=== PATIENT | female | born 1940 | race Caucasian/White ===

== ENCOUNTER 2017-12-25 11:35 | Emergency (ER) | payer OTHER ==
[2017-12-25 12:04] VITALS: BP 149/71
--- NOTE | 2017-12-25 12:33 | UC ---
Complaint Female HPI - HPI Summary HPI Summary: woke up this morning with increased abdominal pressure and hematuria, calvert with urination - History Of Current Complaint Chief Complaint: UCGU Stated Complaint: URINARY Time Seen by Provider: 12/25/17 12:18 Hx Obtained From: Patient Onset/Duration: Sudden Onset, Lasting Hours Timing: Constant Severity Initially: Mild Severity Currently: Mild Pain Intensity: 0 Aggravating Factor(s): Urination - Allergies/Home Medications Allergies/Adverse Reactions: Allergies Allergy/AdvReac Type Severity Reaction Status Date / Time sulfamethoxazole Allergy Vomiting Verified 12/25/17 11:59 [From Bactrim] trimethoprim [From Bactrim] Allergy Vomiting Verified 12/25/17 11:59 Home Medications: Home Medications Alendronate Sodium [Fosamax-] 70 mg PO WEEKLY 12/25/17 [History Confirmed ] Amlodipine Besylate [Norvasc 5 mg tab] 5 mg PO DAILY 12/25/17 [History Confirmed 12/25/17] Aspirin [Aspir-Low] 81 mg PO DAILY 12/25/17 [History Confirmed 12/25/17] Cholecalciferol (Vitamin D3) [Vitamin D3] 2,000 unit PO DAILY 12/25/17 [History Confirmed 12/25/17] Hydrochlorothiazide TAB* [Hydrodiuril TAB*] 12.5 mg PO DAILY 12/25/17 [History Confirmed 12/25/17] Losartan Potassium 100 mg PO DAILY 12/25/17 [History Confirmed 12/25/17] Lovastatin (NF) [Mevacor (NF)] 80 mg PO DAILY 12/25/17 [History Confirmed ] Multivitamins/Minerals TAB* [Theragran/minerals TAB*] 1 tab PO DAILY 12/25/17 [ History Confirmed 12/25/17] [place]-3 Fatty Acids/Fish Oil [Fish Oil 1,000 mg Capsule] 1 each PO DAILY [History Confirmed 12/25/17] Omeprazole CAP* [Prilosec CAP* 20 MG] 20 mg PO DAILY 12/25/17 [History Confirmed 12/25/17] PARoxetine HCL TAB* [Paxil TAB*] 10 mg PO DAILY 12/25/17 [History Confirmed 01/05] Potassium Chlor TAB* [Klor Con ER TAB*] 10 meq PO DAILY 12/25/17 [History Confirmed 12/25/17] PMH/Surg Hx/FS Hx/Imm Hx Previously Healthy: Yes - Surgical History Surgical History: Yes Surgery Procedure, Year, and Place: hysterectomy. hernia. bowel resection. ovarian cyst removal. bilateral knee replacements. bladder lift. - Family History Known Family History: Positive: Hypertension - Social History Alcohol Use: None Substance Use Type: None Smoking Status (MU): Never Smoked Tobacco Review of Systems Constitutional: Negative Skin: Negative Eyes: Negative ENT: Negative Respiratory: Negative Cardiovascular: Negative Gastrointestinal: Abdominal Pain - lower abdominal pressure Genitourinary: Dysuria, Hematuria, Frequency Motor: Negative Neurovascular: Negative Musculoskeletal: Negative Neurological: Negative Psychological: Negative Is Patient Immunocompromised?: No All Other Systems Reviewed And Are Negative: Yes Physical Exam Triage Information Reviewed: Yes Appearance: Well-Appearing, Well-Nourished, Pain Distress Vital Signs: Initial Vital Signs Temp 98.8 F 12/25/17 12:00 Pulse 65 12/25/17 12:00 Resp 16 12/25/17 12:00 BP 149/71 12/25/17 12:00 Pulse Ox 95 12/25/17 12:00 Vital Signs Reviewed: Yes Eye Exam: Normal ENT Exam: Normal Dental Exam: Normal Neck exam: Normal Respiratory Exam: Normal Respiratory: Positive: Chest non-tender, Lungs clear, Normal breath sounds Cardiovascular Exam: Normal Cardiovascular: Positive: RRR, No Murmur, Pulses Normal Abdominal Exam: Normal Abdomen Description: Positive: Nontender, No Organomegaly, Soft, CVA Tenderness (R) - neg, CVA Tenderness (L) - neg Bowel Sounds: Positive: Present Musculoskeletal Exam: Normal Neurological Exam: Normal Psychological Exam: Normal Skin Exam: Normal Complaint Female Dx - Course Course Of Treatment: hx obtained, exam performed ,meds reviewed, treated for UTI - Differential Dx/Diagnosis Differential Diagnosis/HQI/PQRI: Ureteral Stone, Urinary Tract Infection Provider Diagnoses: UTI. hematuria Discharge - Sign-Out/Discharge Documenting (check all that apply): Discharge/Admit/Transfer - Discharge Plan Condition: Stable Disposition: HOME Prescriptions: Cephalexin CAP* [Keflex CAP*] 500 mg PO BID #14 cap Patient Education Materials: Urinary Tract Infection in Women (DC) Referrals: Bryan Shannon MD [Primary Care Provider] - Additional Instructions: 1. Increase fluid intake. 2. Take the medication as prescribed. 3. Follow up with Dr Shannon regarding the frequent and urgency of urination. - Billing Disposition and Condition Condition: STABLE Disposition: Home
== END 2017-12-25 12:53 | disposition home or self-care (01) ==
LOC: UCCORT 11:35
DX: N39.0 Urinary tract infection, site not specified (principal); B96.1 Klebsiella pneumoniae [K. pneumoniae] as the cause of diseases classified elsewhere; R31.9 Hematuria, unspecified; Z16.11 Resistance to penicillins; Z88.1 Allergy status to other antibiotic agents
CPT/HCPCS: 81003; 87077; 87086; 87186; 99202; G0463

== ENCOUNTER 2018-06-19 09:59 | Emergency (ER) | payer MEDICARE, OTHER ==
[2018-06-19 10:19] VITALS: BP 160/61
--- NOTE | 2018-06-19 10:27 | UC ---
UC General HPI - HPI Summary HPI Summary: PT C/O FEELING WEAK, COUGH, BODYACHES, FATIGUE, SUBJECTIVE FEVER AND CHILLS X 6 DAYS. + WHEEZING. NO CP, SOB, N/V/D OR COPD/ASTHMA. HAD A FLU SHOT THIS YEAR. - History of Current Complaint Chief Complaint: UCRespiratory Stated Complaint: COUGH,BODY ACHES,WEAKNESS Time Seen by Provider: 06/19/18 10:20 Hx Obtained From: Patient Onset/Duration: Gradual Onset Timing: Constant Pain Intensity: 5 - Allergy/Home Medications Allergies/Adverse Reactions: Allergies Allergy/AdvReac Type Severity Reaction Status Date / Time sulfamethoxazole Allergy Vomiting Verified 12/25/17 11:59 [From Bactrim] trimethoprim [From Bactrim] Allergy Vomiting Verified 12/25/17 11:59 PMH/Surg Hx/FS Hx/Imm Hx Endocrine History: Dyslipidemia Cardiovascular History: Hypertension GI/ History: Gastroesophageal Reflux Psychological History: Depression - Surgical History Surgical History: Yes Surgery Procedure, Year, and Place: hysterectomy. hernia. bowel resection. ovarian cyst removal. bilateral knee replacements. bladder lift. - Family History Known Family History: Positive: Hypertension - Social History Alcohol Use: None Substance Use Type: None Smoking Status (MU): Former Smoker Type: Cigarettes Amount Used/How Often: 1 ppd Length of Time of Smoking/Using Tobacco: only for 5 years in younger years - Immunization History Vaccination Up to Date: Yes Review of Systems All Other Systems Reviewed And Are Negative: Yes Constitutional: Positive: Fever, Chills, Fatigue Skin: Positive: Negative Eyes: Positive: Negative ENT: Positive: Negative Respiratory: Positive: Cough. Negative: Shortness Of Breath Cardiovascular: Negative: Palpitations, Chest Pain Gastrointestinal: Positive: Negative Genitourinary: Positive: Negative Motor: Positive: Negative Neurovascular: Positive: Negative Musculoskeletal: Positive: Myalgia Neurological: Positive: Weakness Psychological: Positive: Negative Is Patient Immunocompromised?: No Physical Exam Triage Information Reviewed: Yes Appearance: Well-Appearing Vital Signs: Initial Vital Signs Temp 98.7 F 06/19/18 10:14 Pulse 64 06/19/18 10:14 Resp 19 06/19/18 10:14 BP 160/61 06/19/18 10:14 Pulse Ox 96 06/19/18 10:14 Vital Signs Reviewed: Yes Eyes: Positive: Conjunctiva Clear ENT: Positive: Pharynx normal, TMs normal. Negative: Nasal congestion, Nasal drainage Neck: Positive: Supple, No Lymphadenopathy Respiratory: Positive: No respiratory distress, Decreased breath sounds, Other: - Bilateral rhonchi/wheezes Cardiovascular: Positive: RRR, No Murmur Abdomen Description: Positive: Nontender, No Organomegaly, Soft Bowel Sounds: Positive: Present Musculoskeletal: Positive: ROM Intact, No Edema Neurological: Positive: Alert Psychological: Positive: Age Appropriate Behavior Skin Exam: Normal Diagnostics - Laboratory Diagnostic Studies Completed/Ordered: Rapid influenza A positive - Radiology No standard instances Radiology Interpretation Completed By: Radiologist - No radiographic evidence of acute cardiopulmonary disease. Course/Dx - Course Course Of Treatment: Influenza A positive and beyond 48 hours; however, given pt age and worsening, will cover with Tamiflu. no inflitrate on cxr and non toxic/not hypoxic thus out tp tx appropriate. need for close f/u and go to er for any worsening stressed before discharge. pt agrees. - Diagnoses Provider Diagnosis: Influenza A Discharge - Sign-Out/Discharge Documenting (check all that apply): Patient Departure All imaging exams completed and their final reports reviewed: Yes - Discharge Plan Condition: Stable Disposition: HOME Prescriptions: Albuterol HFA INHALER* [Ventolin HFA Inhaler*] 2 puff INH Q6H #1 mdi Oseltamivir CAP* [Tamiflu CAP*] 75 mg PO BID 5 Days #10 cap Patient Education Materials: Influenza (DC) Referrals: Bryan Shannon MD [Primary Care Provider] - 5 Days Additional Instructions: GO TO ER FOR ANY WORSENING - Billing Disposition and Condition Condition: STABLE Disposition: Home
[2018-06-19] MEDS ORDERED: Albuterol 2.5 MG/3 ML NEB.SOL* (0.083%) INH ONE (10:42)
== END 2018-06-19 11:34 | disposition home or self-care (01) ==
LOC: UCCORT 09:59
DX: J09.X2 Influenza due to identified novel influenza A virus with other respiratory manifestations (principal); Z88.1 Allergy status to other antibiotic agents; I10 Essential (primary) hypertension; Z87.891 Personal history of nicotine dependence
CPT/HCPCS: 71046; 99212; G0463